=== PATIENT | female | born 1960 | race Caucasian/White ===

== ENCOUNTER → 2020-02-25 | Outpatient (REF) | payer BC | LOC: M LAB REF 08:33 | PROVIDERS: ATTEND Dermatology | DX: L57.0 Actinic keratosis (principal) ==

== ENCOUNTER → 2021-12-01 | Outpatient (REF) | payer BC ==
[2021-12-01 17:51] LABS: C REACTIVE PROTEIN QUANTITATIV 0.35 MG/DL (0.00-0.30); RHEUMATOID FACTOR QUANT < 10.0 IU/ML (<15.0)
== END ==
LOC: M LAB REF 16:56
PROVIDERS: ATTEND Physician Assistant
DX: R06.00 Dyspnea, unspecified (principal)

== ENCOUNTER → 2022-02-17 | Outpatient (CLI) | payer BC ==
[~2022-02-17] MED LIST: METHACHOLINE KIT (J7674) INH ONE
== END ==
LOC: M CARPUL 09:08
PROVIDERS: ATTEND Physician Assistant
DX: R06.00 Dyspnea, unspecified (principal); Z53.9 Procedure and treatment not carried out, unspecified reason

== ENCOUNTER → 2023-08-28 | Outpatient (REF) | payer BC ==
[2023-08-28 19:14] LABS: ALBUMIN 3.6 G/DL (3.2-5.2); BILIRUBIN,DIRECT 0.2 MG/DL (<0.4); BILIRUBIN,TOTAL 0.6 MG/DL (0.3-1.2); TOTAL PROTEIN 7.8 G/DL (5.7-8.2)
== END ==
LOC: M LAB REF 17:36
PROVIDERS: ATTEND Internal Medicine Pulmonary Disease
DX: J84.10 Pulmonary fibrosis, unspecified (principal)

== ENCOUNTER 2023-12-19 16:26 | Inpatient (IN) | payer BC ==
[~2023-12-19] VITALS: Ht 160 cm; Wt 57.9 kg
[2023-12-19] MEDS ORDERED: ALBUTEROL SULFATE 2.5MG/0.5ML INH NEB SOLN NEB PRN (16:45)
[2023-12-19 18:00] VITALS: BP 148/65; TEMP 97.9; O2SAT 86
[2023-12-19 18:15] VITALS: O2SAT 90
[2023-12-19 18:25] LABS: BASO % 0.2 % (0.0-1.0); EOS # 0.1 10^3/uL (0.0-0.5); EOS % 1.6 % (0.0-3.0); HEMATOCRIT 33.3 % (36.0-47.0); HEMOGLOBIN 11.5 g/dl (12.0-15.5); LYMPH # 2.3 10^3/uL (1.5-5.0); MEAN CORPUSCULAR HEMOGLOBIN 38.7 pg (27.0-33.0); MEAN CORPUSCULAR HGB CONC 34.5 g/dl (32.0-36.5); MEAN CORPUSCULAR VOLUME 112.1 fl (80.0-96.0); MONO # 0.6 10^3/uL (0.0-0.8); MONO % 11.5 % (2.0-8.0); NEUTROPHILS # 2.4 10^3/uL (1.5-8.5); NEUTROPHILS % 44.5 % (36.0-66.0); RED BLOOD COUNT 2.97 10^6/uL (4.00-5.40); WHITE BLOOD COUNT 5.5 10^3/uL (4.0-10.0)
[2023-12-19 18:30] VITALS: O2SAT 89
[2023-12-19 18:42] LABS: ERYTHROCYTE SEDIMENTATION RATE 71 mm/hr (0-30)
[2023-12-19 18:51] LABS: C REACTIVE PROTEIN QUANTITATIV < 0.40 MG/DL (<1.0)
[2023-12-19 18:53] LABS: ALBUMIN 3.4 G/DL (3.2-5.2); ALKALINE PHOSPHATASE 93 U/L (46-116); ALT/SGPT 41 U/L (7.0-40); AST/SGOT 60 U/L (<34); BILIRUBIN,TOTAL 1.1 MG/DL (0.3-1.2); BLOOD UREA NITROGEN 24 MG/DL (9-23); CALCIUM LEVEL 8.5 MG/DL (8.3-10.6); CARBON DIOXIDE LEVEL 23 MMOL/L (20-31); CHLORIDE LEVEL 107 MMOL/L (98-107); CREATININE FOR GFR 0.86 MG/DL (0.55-1.30); GLOMERULAR FILTRATION RATE > 60.0 (>45); GLUCOSE, FASTING 92 MG/DL (74-106); MAGNESIUM LEVEL 2.3 MG/DL (1.8-2.4); PHOSPHORUS LEVEL 3.5 MG/DL (2.4-5.1); POTASSIUM SERUM 3.8 MMOL/L (3.5-5.1); SODIUM LEVEL 137 MMOL/L (136-145); TOTAL PROTEIN 7.3 G/DL (5.7-8.2)
[2023-12-19 18:54] LABS: FREE T4 0.83 NG/DL (0.89-1.76)
[2023-12-19 18:55] LABS: THYROID STIMULATING HORMONE 8.644 uIU/ML (0.55-4.78)
[2023-12-19 19:01] LABS: PLATELET COUNT, AUTOMATED 64 10^3/uL (150-450)
[2023-12-19 19:04] LABS: PROCALCITONIN 0.07 ng/ml
[2023-12-19] MEDS: methylPREDNISolone 1,000 MG, VIAL MATE ADAPTER 1 EACH in NS 250 ML IV SCH (19:13)
[2023-12-19 19:52] VITALS: BP 152/68; TEMP 97.8; O2SAT 93
[2023-12-19] MEDS ORDERED: VITA1CAP25 PO (20:31)
[2023-12-19] MEDS ORDERED: ONDA-83 PO (20:31)
[2023-12-19] MEDS ORDERED: CENT1TAB9 PO (20:31)
[2023-12-19] MEDS ORDERED: BUDE10.7 INH (20:31)
[2023-12-19] MEDS ORDERED: ALBU2.5V10 NEB (20:31)
[2023-12-19] MEDS ORDERED: LOSA50TA28 PO (20:31)
[2023-12-19] MEDS ORDERED: HOME MED LIST COMPLETE! XX SCH (20:40)
[2023-12-19] MEDS ORDERED: ISOVUE-370 76% 100ML VIAL As Ordered ONE (20:40)
[2023-12-19] MEDS ORDERED: ENOXAPARIN 40MG/0.4ML SYRINGE (J1650 PER 10MG) SC SCH (21:00)
[2023-12-19 21:11] VITALS: O2SAT 97
[2023-12-19] MEDS: GLYCOPYRROLATE INJ 0.2 MG/ML 2 ML VIAL NEB SCH (21:14)
[2023-12-19] MEDS: BUDESONIDE 0.5 MG/2 ML INHALATION SUSPENSION NEB SCH (21:14)
[2023-12-19] MEDS: FORMOTEROL FUMARATE 20 MCG/2 ML INHALATION SOLUTION (PERFOROMIST) INH SCH (21:14)
[2023-12-19] MEDS: LOSARTAN 50MG TABLET PO SCH (21:41)
[2023-12-20] VITALS (31 sets, daily range): BP systolic 145–155; BP diastolic 65–73; TEMP 97.7–98.6; O2SAT 76–95
[2023-12-20 05:17] LABS: ALBUMIN 3.1 G/DL (3.2-5.2); CALCIUM LEVEL 8.4 MG/DL (8.3-10.6); CREATININE FOR GFR 1.09 MG/DL (0.55-1.30); GLOMERULAR FILTRATION RATE 54.1 (>45); POTASSIUM SERUM 4.4 MMOL/L (3.5-5.1); TOTAL PROTEIN 6.9 G/DL (5.7-8.2)
[2023-12-20] MEDS: ENOXAPARIN 40MG/0.4ML SYRINGE (J1650 PER 10MG) SC SCH (09:57)
[2023-12-20] MEDS: FLUTICASONE PROP 0.05% NASAL SPRAY 16 GM (FLONASE) NARES SCH (09:57)
[2023-12-21] VITALS (14 sets, daily range): BP systolic 138–144; BP diastolic 65–70; TEMP 98.2–98.5; O2SAT 90–95
[2023-12-21 05:13] LABS: HEMATOCRIT 29.6 % (36.0-47.0); HEMOGLOBIN 10.1 g/dl (12.0-15.5); LYMPH # 0.6 10^3/uL (1.5-5.0); LYMPH % 10.5 % (24.0-44.0); MEAN CORPUSCULAR HEMOGLOBIN 39.5 pg (27.0-33.0); MEAN CORPUSCULAR HGB CONC 34.1 g/dl (32.0-36.5); MEAN CORPUSCULAR VOLUME 115.6 fl (80.0-96.0); MONO # 0.3 10^3/uL (0.0-0.8); MONO % 4.7 % (2.0-8.0); NEUTROPHILS % 84.5 % (36.0-66.0); RED BLOOD COUNT 2.56 10^6/uL (4.00-5.40); WHITE BLOOD COUNT 5.9 10^3/uL (4.0-10.0)
[2023-12-21 05:14] LABS: PLATELET COUNT, AUTOMATED 44 10^3/uL (150-450)
[2023-12-21 05:43] LABS: ALKALINE PHOSPHATASE 83 U/L (46-116); ALT/SGPT 106 U/L (7.0-40); AST/SGOT 114 U/L (<34); BILIRUBIN,TOTAL 0.8 MG/DL (0.3-1.2); BLOOD UREA NITROGEN 29 MG/DL (9-23); CALCIUM LEVEL 7.9 MG/DL (8.3-10.6); CARBON DIOXIDE LEVEL 21 MMOL/L (20-31); CHLORIDE LEVEL 107 MMOL/L (98-107); CREATININE FOR GFR 0.94 MG/DL (0.55-1.30); GLOMERULAR FILTRATION RATE > 60.0 (>45); GLUCOSE, FASTING 156 MG/DL (74-106); MAGNESIUM LEVEL 2.3 MG/DL (1.8-2.4); POTASSIUM SERUM 4.3 MMOL/L (3.5-5.1); SODIUM LEVEL 138 MMOL/L (136-145); TOTAL PROTEIN 6.6 G/DL (5.7-8.2)
[2023-12-21 05:45] LABS: THYROID STIMULATING HORMONE 1.295 uIU/ML (0.55-4.78)
[2023-12-21 05:46] LABS: FREE T4 0.76 NG/DL (0.89-1.76)
[2023-12-21 05:52] LABS: ANISOCYTOSIS 1+; PLATELET ESTIMATE MARKED DECREASE (NORMAL)
[2023-12-21] MEDS: predniSONE 10MG TAB PO SCH (08:52)
[2023-12-21 11:48] LABS: HEPATITIS B CORE ANTIBODY IGM NEGATIVE (NEGATIVE); HEPATITIS C VIRUS ABY INDEX 0.04 INDEX (<0.8)
[2023-12-22] VITALS: BP 123/60; TEMP 98.4; O2SAT 97
[2023-12-22 04:00] VITALS: BP 120/58; TEMP 98.8; O2SAT 94
[2023-12-22 05:28] LABS: HEMATOCRIT 27.5 % (36.0-47.0); HEMOGLOBIN 9.4 g/dl (12.0-15.5); LYMPH % 19.1 % (24.0-44.0); MEAN CORPUSCULAR HGB CONC 34.2 g/dl (32.0-36.5); MONO # 0.4 10^3/uL (0.0-0.8); MONO % 7.4 % (2.0-8.0); NEUTROPHILS # 3.9 10^3/uL (1.5-8.5); NEUTROPHILS % 72.9 % (36.0-66.0); RED BLOOD COUNT 2.41 10^6/uL (4.00-5.40); WHITE BLOOD COUNT 5.4 10^3/uL (4.0-10.0)
[2023-12-22 05:30] LABS: MEAN CORPUSCULAR VOLUME 114.1 fl (80.0-96.0); PLATELET COUNT, AUTOMATED 48 10^3/uL (150-450)
[2023-12-22 05:59] LABS: ALBUMIN 2.7 G/DL (3.2-5.2); ALKALINE PHOSPHATASE 76 U/L (46-116); ALT/SGPT 108 U/L (7.0-40); AST/SGOT 88 U/L (<34); BILIRUBIN,TOTAL 0.5 MG/DL (0.3-1.2); BLOOD UREA NITROGEN 34 MG/DL (9-23); CARBON DIOXIDE LEVEL 23 MMOL/L (20-31); CHLORIDE LEVEL 108 MMOL/L (98-107); CREATININE FOR GFR 0.82 MG/DL (0.55-1.30); GLOMERULAR FILTRATION RATE > 60.0 (>45); GLUCOSE, FASTING 116 MG/DL (74-106); MAGNESIUM LEVEL 2.4 MG/DL (1.8-2.4); POTASSIUM SERUM 4.1 MMOL/L (3.5-5.1); SODIUM LEVEL 138 MMOL/L (136-145); TOTAL PROTEIN 6.1 G/DL (5.7-8.2)
[2023-12-22 06:04] LABS: ANISOCYTOSIS 1+
[2023-12-22 06:05] LABS: PLATELET ESTIMATE MARKED DECREASE (NORMAL)
[2023-12-22 08:00] VITALS: BP 140/63; TEMP 97.7; O2SAT 91
[2023-12-22] MEDS ORDERED: PRED10TA2 PO (08:50)
== END 2023-12-22 13:25 | disposition home or self-care (01) | DRG 133 ==
LOC: M ED INP 16:43 → UNDOADMIN 16:43 → M ED INP 16:45 → M ICU 16:45 → UNDOADMIN 16:45
PROVIDERS: ADMIT Internal Medicine Pulmonary Disease; ATTEND Internal Medicine
DX: J96.21 Acute and chronic respiratory failure with hypoxia (principal); I27.20 Pulmonary hypertension, unspecified; D69.6 Thrombocytopenia, unspecified; J84.10 Pulmonary fibrosis, unspecified; Q21.10 Atrial septal defect, unspecified; I10 Essential (primary) hypertension; E03.9 Hypothyroidism, unspecified; I35.0 Nonrheumatic aortic (valve) stenosis; M25.78 Osteophyte, vertebrae; Z79.899 Other long term (current) drug therapy; Z86.16 Personal history of COVID-19; Z85.828 Personal history of other malignant neoplasm of skin

== ENCOUNTER 2025-07-19 14:08 | Inpatient (IN) | payer BC, MEDICARE ==
[~2025-07-19] VITALS: Ht 160 cm; Wt 65.4 kg
[~2025-07-19 14:08] MED LIST changes: +ALBU2.5V10 NEB; +BUDE10.7 INH; +CENT1TAB9 PO; +LOSA50TA28 PO; -METHACHOLINE KIT (J7674) INH ONE; +ONDA-83 PO; +PRED10TA2 PO; +VITA1CAP25 PO
[2025-07-19] MEDS ORDERED: ACETAMINOPHEN 500 MG TAB PO ONE (14:30)
[2025-07-19 14:42] LABS: VENOUS BASE EXCESS 0.5 (-2.0-2.0); VENOUS HCO3 21.8 MMOL/L (23.0-27.0); VENOUS O2 SATURATION 98.4 % (60.0-80.0); VENOUS PARTIAL PRESSURE CO2 26.3 mmHg (38.0-50.0); VENOUS PARTIAL PRESSURE O2 112.5 mmHg (30.0-50.0); VENOUS PH 7.536 UNITS (7.330-7.430); VENOUS STANDARD HCO3 25.0 MMOL/L; VENOUS TOTAL CO2 22.6 MMOL/L (24.0-28.0)
[2025-07-19 14:58] LABS: BASO # 0.0 10^3/uL (0.0-0.2); BASO % 0.2 % (0.0-1.0); EOS # 0.3 10^3/uL (0.0-0.5); EOS % 3.0 % (0.0-3.0); LYMPH # 1.3 10^3/uL (1.5-5.0); LYMPH % 13.7 % (24.0-44.0); MONO # 0.6 10^3/uL (0.0-0.8); MONO % 7.0 % (2.0-8.0); NEUTROPHILS # 7.0 10^3/uL (1.5-8.5); NEUTROPHILS % 75.7 % (36.0-66.0)
[2025-07-19 15:10] LABS: PLATELET COUNT, AUTOMATED 91 10^3/uL (150-450)
[2025-07-19 15:12] LABS: ALT/SGPT 39.0 U/L (7.0-40); AST/SGOT 37.0 U/L (<34); CALCIUM LEVEL 8.8 MG/DL (8.3-10.6); CARBON DIOXIDE LEVEL 21.0 MMOL/L (20-31); CHLORIDE LEVEL 104.0 MMOL/L (98-107); CREATININE FOR GFR 1.23 MG/DL (0.55-1.30); GLOMERULAR FILTRATION RATE 49.1 (>45); POTASSIUM SERUM 3.8 MMOL/L (3.5-5.1); SODIUM LEVEL 134.0 MMOL/L (136-145)
[2025-07-19 15:14] LABS: THYROXINE (T4) 4.0 UG/DL (4.5-10.9)
[2025-07-19] MEDS ORDERED: PRED10TA2 PO (15:53)
[2025-07-19] MEDS ORDERED: HOME MED LIST COMPLETE! XX SCH (15:55)
[2025-07-19] MEDS: IPRATROPIUM 0.5 MG/ALBUTEROL 2.5 MG INH SOL UD 3 ML NEB PRN (16:12)
[2025-07-19] MEDS: cefTRIAXone SOD 1 GM in DEXTROSE 5% (D5W) ADV/MINI-BAG 50 ML IV ONE (16:15)
[2025-07-19] MEDS: AZITHROMYCIN 250 MG TABLET PO ONE (16:15)
[2025-07-19] MEDS ORDERED: ISOVUE-370 76% 100 ML VIAL As Ordered ONE (17:21)
[2025-07-19 18:01] LABS: INR 1.03
[2025-07-19 18:08] LABS: LDH LACTATE DEHYDROGENASE 353.0 U/L (120-246)
[2025-07-19 19:07] VITALS: BP 153/73; TEMP 97.3; O2SAT 90
[2025-07-19 19:49] VITALS: BP 123/56; TEMP 98; O2SAT 88
[2025-07-19] MEDS: BACTRIM 160MG/800MG DS TAB PO SCH (20:09)
[2025-07-19] MEDS: BUDESONIDE 0.5 MG/2 ML INHALATION SUSPENSION NEB SCH (20:18)
[2025-07-19] MEDS: GLYCOPYRROLATE INJ 0.2 MG/ML 2 ML VIAL NEB SCH (20:18)
[2025-07-19] MEDS ORDERED: TRIMETHOPRIM/SULFAMETH 80/400 MG TAB PO SCH (21:00)
[2025-07-19 21:58] VITALS: O2SAT 92
[2025-07-19 21:59] VITALS: O2SAT 90
[2025-07-19 23:24] VITALS: BP 122/58; TEMP 97.7; O2SAT 89
[2025-07-19] MEDS: traZODone 100 MG TAB PO PRN (23:27)
[2025-07-20] VITALS (14 sets, daily range): BP systolic 119–135; BP diastolic 57–67; TEMP 96.8–97.7; O2SAT 85–91
[2025-07-20 06:34] LABS: PLATELET COUNT, AUTOMATED 87 10^3/uL (150-450)
[2025-07-20] MEDS ORDERED: TRAZ-189 PO (07:11)
[2025-07-20 07:21] LABS: ALT/SGPT 41.0 U/L (7.0-40); AST/SGOT 35.0 U/L (<34); CALCIUM LEVEL 8.8 MG/DL (8.3-10.6); CARBON DIOXIDE LEVEL 22.0 MMOL/L (20-31); CHLORIDE LEVEL 105.0 MMOL/L (98-107); CREATININE FOR GFR 1.36 MG/DL (0.55-1.30); GLOMERULAR FILTRATION RATE 43.5 (>45); POTASSIUM SERUM 4.4 MMOL/L (3.5-5.1); SODIUM LEVEL 135.0 MMOL/L (136-145)
[2025-07-20] MEDS: NS (Normal Saline) 0.9% 1,000 ML IV SCH (08:05)
[2025-07-20] MEDS: predniSONE 20 MG TAB PO SCH (08:05)
[2025-07-20] MEDS: ENOXAPARIN 40 MG/0.4 ML SYRINGE (J1650 PER 10MG) SC SCH (08:16)
[2025-07-20] MEDS: IPRATROPIUM 0.5 MG/ALBUTEROL 2.5 MG INH SOL UD 3 ML NEB PRN (14:17)
[2025-07-20] MEDS: AZITHROMYCIN 250 MG TABLET PO SCH (16:16)
[2025-07-20] MEDS: cefTRIAXone SOD 1 GM in DEXTROSE 5% (D5W) ADV/MINI-BAG 50 ML IV SCH (16:17)
[2025-07-21] VITALS (18 sets, daily range): BP systolic 114–144; BP diastolic 52–73; TEMP 97–98.4; O2SAT 82–92
[2025-07-21 07:06] LABS: PLATELET COUNT, AUTOMATED 68 10^3/uL (150-450)
[2025-07-21 07:24] LABS: ALT/SGPT 37.0 U/L (7.0-40); AST/SGOT 35.0 U/L (<34); CALCIUM LEVEL 8.2 MG/DL (8.3-10.6); CARBON DIOXIDE LEVEL 20.0 MMOL/L (20-31); CHLORIDE LEVEL 111.0 MMOL/L (98-107); CREATININE FOR GFR 1.21 MG/DL (0.55-1.30); GLOMERULAR FILTRATION RATE 50.1 (>45); POTASSIUM SERUM 4.3 MMOL/L (3.5-5.1); SODIUM LEVEL 143.0 MMOL/L (136-145)
[2025-07-21] MEDS: FUROSEMIDE 40 MG/4 ML VIAL IV ONE (22:12)
[2025-07-22] VITALS (10 sets, daily range): BP systolic 131–134; BP diastolic 60–76; TEMP 96.8–98.6; O2SAT 85–91
[2025-07-22] MEDS ORDERED: ALBUTEROL SULFATE 2.5 MG/0.5 ML INH CONCENTRATE NEB SOLN NEB PRN (00:15)
[2025-07-22] MEDS: IPRATROPIUM 0.5 MG/ALBUTEROL 2.5 MG INH SOL UD 3 ML NEB SCH (00:22)
[2025-07-22 07:45] LABS: PLATELET COUNT, AUTOMATED 85 10^3/uL (150-450)
[2025-07-22 08:20] LABS: ALT/SGPT 42.0 U/L (7.0-40); AST/SGOT 53.0 U/L (<34); CALCIUM LEVEL 8.5 MG/DL (8.3-10.6); CARBON DIOXIDE LEVEL 21.0 MMOL/L (20-31); CHLORIDE LEVEL 108.0 MMOL/L (98-107); CREATININE FOR GFR 1.27 MG/DL (0.55-1.30); GLOMERULAR FILTRATION RATE 47.2 (>45); POTASSIUM SERUM 4.0 MMOL/L (3.5-5.1); SODIUM LEVEL 142.0 MMOL/L (136-145)
[2025-07-22] MEDS: guaiFENesin ER TABLET 600 MG TAB PO SCH (12:02)
[2025-07-22] MEDS ORDERED: ALPRAZolam 0.25 MG TAB PO PRN ×2 (12:55→16:25)
[2025-07-22] MEDS: FUROSEMIDE 40 MG/4 ML VIAL IV ONE (13:06)
[2025-07-22] MEDS: BACTRIM 160MG/800MG DS TAB PO SCH (13:09)
[2025-07-22] MEDS: ALPRAZolam 0.25 MG TAB PO PRN (16:25)
[2025-07-23 03:37] VITALS: BP 133/65; TEMP 97.2; O2SAT 89
[2025-07-23 06:52] LABS: BASO # 0.0 10^3/uL (0.0-0.2); BASO % 0.2 % (0.0-1.0); EOS # 0.0 10^3/uL (0.0-0.5); EOS % 0.0 % (0.0-3.0); LYMPH # 0.4 10^3/uL (1.5-5.0); LYMPH % 3.4 % (24.0-44.0); MONO # 0.5 10^3/uL (0.0-0.8); MONO % 4.7 % (2.0-8.0); NEUTROPHILS # 10.0 10^3/uL (1.5-8.5); NEUTROPHILS % 90.4 % (36.0-66.0)
[2025-07-23 06:54] LABS: PLATELET COUNT, AUTOMATED 91 10^3/uL (150-450)
[2025-07-23 07:24] LABS: CALCIUM LEVEL 8.4 MG/DL (8.3-10.6); CARBON DIOXIDE LEVEL 21.0 MMOL/L (20-31); CHLORIDE LEVEL 104.0 MMOL/L (98-107); CREATININE FOR GFR 1.36 MG/DL (0.55-1.30); GLOMERULAR FILTRATION RATE 43.5 (>45); POTASSIUM SERUM 4.0 MMOL/L (3.5-5.1); SODIUM LEVEL 139.0 MMOL/L (136-145)
[2025-07-23] MEDS: ACETYLCYSTEINE 20% 4 ML VIAL (200 MG/ML) INH STA (08:23)
[2025-07-23] MEDS: FUROSEMIDE 40 MG/4 ML VIAL IV ONE (10:22)
[2025-07-23] MEDS: IPRATROPIUM 0.5 MG/ALBUTEROL 2.5 MG INH SOL UD 3 ML NEB PRN (19:13)
[2025-07-23 20:00] VITALS: BP 127/66; TEMP 97; O2SAT 90
[2025-07-23] MEDS ORDERED: ACETYLCYSTEINE 20% 4 ML VIAL (200 MG/ML) INH SCH (20:00)
[2025-07-24] VITALS (15 sets, daily range): BP systolic 133–139; BP diastolic 60–71; TEMP 96.8–97; O2SAT 86–95
[2025-07-24 06:22] LABS: PLATELET COUNT, AUTOMATED 102 10^3/uL (150-450)
[2025-07-24 06:45] LABS: CALCIUM LEVEL 8.4 MG/DL (8.3-10.6); CARBON DIOXIDE LEVEL 21.0 MMOL/L (20-31); CHLORIDE LEVEL 102.0 MMOL/L (98-107); CREATININE FOR GFR 1.47 MG/DL (0.55-1.30); GLOMERULAR FILTRATION RATE 39.6 (>45); POTASSIUM SERUM 4.3 MMOL/L (3.5-5.1); SODIUM LEVEL 135.0 MMOL/L (136-145)
[2025-07-24] MEDS: FUROSEMIDE 40 MG/4 ML VIAL IV ONE (09:36)
[2025-07-24] MEDS: ENOXAPARIN 40 MG/0.4 ML SYRINGE (J1650 PER 10MG) SC SCH (13:39)
[2025-07-24] MEDS ORDERED: FUROSEMIDE 40 MG/4 ML VIAL IV ONE (16:00)
[2025-07-24] MEDS: PANTOPRAZOLE 40MG VIAL IV SCH (17:39)
[2025-07-24] MEDS: MEROPENEM 1 GM in IV 1 EA IV SCH (17:39)
[2025-07-24] MEDS: VORICONAZOLE 200MG TABLET PO ONE (17:44)
[2025-07-24] MEDS: methylPREDNISolone 1,000 MG, VIAL MATE ADAPTER 1 EACH in NS 100 ML IV ONE (20:17)
[2025-07-24] MEDS: BACTRIM 160MG/800MG DS TAB PO SCH (21:00)
[2025-07-24] MEDS: VORICONAZOLE 200MG TABLET PO SCH (22:57)
[2025-07-25] VITALS (13 sets, daily range): BP systolic 123–138; BP diastolic 58–67; TEMP 96.5–96.9; O2SAT 83–96
[2025-07-25 06:00] LABS: PLATELET COUNT, AUTOMATED 112 10^3/uL (150-450)
[2025-07-25 06:26] LABS: CALCIUM LEVEL 8.5 MG/DL (8.3-10.6); CARBON DIOXIDE LEVEL 21.0 MMOL/L (20-31); CHLORIDE LEVEL 100.0 MMOL/L (98-107); CREATININE FOR GFR 1.44 MG/DL (0.55-1.30); GLOMERULAR FILTRATION RATE 40.6 (>45); POTASSIUM SERUM 4.8 MMOL/L (3.5-5.1); SODIUM LEVEL 134.0 MMOL/L (136-145)
[2025-07-25] MEDS ORDERED: ONDANSETRON 4MG ORAL DISINTEGRATING TAB PO PRN (10:25)
[2025-07-25] MEDS ORDERED: ONDANSETRON 4MG 2ML VIAL IV PRN (10:25)
[2025-07-25] MEDS ORDERED: HYOSCYAMINE SULFATE 0.125 MG SUBL TABLET PO PRN (10:25)
[2025-07-25] MEDS: MORPHINE 4 MG/ML 1 ML VIAL IV PRN (10:53)
[2025-07-25] MEDS: SCOPOLAMINE 1MG TRANSDERMAL PATCH TOP SCH (16:55)
[2025-07-25] MEDS ORDERED: BUDESONIDE 0.5 MG/2 ML INHALATION SUSPENSION NEB PRN (18:45)
[2025-07-25] MEDS ORDERED: GLYCOPYRROLATE INJ 0.2 MG/ML 2 ML VIAL NEB PRN (18:45)
[2025-07-27] MEDS: MORPHINE 10 MG/0.5 ML ORAL CONCENTRATE SOLUTION U/D SL PRN (06:55)
[2025-07-27] MEDS: LORazepam 1 MG TAB PO PRN (21:43)
[2025-07-28] MEDS ORDERED: NYSTATIN 500,000 UNITS/5 ML SUSP UDC PO PRN (13:45)
[2025-07-28] MEDS: LORazepam 1 MG TAB PO PRN (15:03)
[2025-07-28] MEDS: MORPHINE 10 MG/0.5 ML ORAL CONCENTRATE SOLUTION U/D SL SCH (17:08)
[2025-07-28 18:27] LABS: FUNGITELL, SERUM 54 pg/mL (<60)
[2025-07-29] MEDS ORDERED: ATIV1TAB10 PO (20:15)
[2025-07-29] MEDS ORDERED: HYOS125TA PO (20:15)
[2025-07-29] MEDS ORDERED: MORP1SOL5 PO (20:15)
== END 2025-07-30 11:05 | disposition hospice, home (50) | DRG 871 ==
LOC: M ED 14:08 → M ED INP 16:41 → M MSPAV 18:46 → M PCU 07-24 22:52 → M MS5PR 07-26 11:20
PROVIDERS: ADMIT Internal Medicine; ATTEND Internal Medicine
DX: A41.9 Sepsis, unspecified organism (principal); J96.21 Acute and chronic respiratory failure with hypoxia; J18.9 Pneumonia, unspecified organism; N17.9 Acute kidney failure, unspecified; M85.80 Other specified disorders of bone density and structure, unspecified site; E03.9 Hypothyroidism, unspecified; J84.112 Idiopathic pulmonary fibrosis; I10 Essential (primary) hypertension; I35.1 Nonrheumatic aortic (valve) insufficiency; R74.02 Elevation of levels of lactic acid dehydrogenase [LDH]; Z99.81 Dependence on supplemental oxygen; I35.0 Nonrheumatic aortic (valve) stenosis; Z85.828 Personal history of other malignant neoplasm of skin; Z79.52 Long term (current) use of systemic steroids; Z79.899 Other long term (current) drug therapy; Z91.013 Allergy to seafood; Z66 Do not resuscitate; Z51.5 Encounter for palliative care